=== PATIENT | male | born 1940 | race Caucasian/White ===

== ENCOUNTER → 2016-10-15 | Day surgery (SDC) | payer MEDICARE, BC ==
[~2016-10-15] MED LIST: ACET325T PO; ALPR-138; ALPR0.25 PO; AMLO5TAB96; BENI20TA25; BUPIVACAINE/EPINEPHRINE 0.25% 50 ML VIAL ONE; CHOL50006 PO; CLON1TAB PO; CLOP75TA PO; DEGA80IN SQ; LABE200T2; LABE300T; LACTATED RINGER'S 1000 ML INJ 1,000 ML ONE; LORT5TAB; LOSA100T PO; MECL12.574 PO; MIDAZOLAM HCL 2 MG/2 ML VIAL ONE; MIRA50TA PO; NEOMYCIN/POLYMYXIN/BACITRACIN OINT 15 GM TUBE ONE; PROPOFOL 500 MG/50 ML BTL IV ONE; SOMA350T; TAMS0.4C4 PO; VERA1TAB10 PO; VITA400C5 PO; VYTO10TA35; ZOCO40TA PO; ZOVI400T PO; ceFAZolin 2 GM PREMIX 50 ML ONE
--- NOTE | 2016-10-15 12:11 | TN ---
cc: PACO DE JESUS M.D. DATE OF SURGERY 10/15/2016 PREOPERATIVE DIAGNOSIS Basal cell and squamous cell carcinoma bilateral lower extremity (two on the left, one on the right). 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 PROCEDURE PERFORMED 1. Wide local excision basal cell and squamous cell carcinomas bilateral lower extremities. 2. Right lower extremity 2 x 4 cm. 3. Left medial lower extremity 3 x 6 cm. 4. Left lateral lower extremity 2 x 4 cm SURGEON Paco De Jesus MD ANESTHESIA TIVA with local COMPLICATIONS None INDICATIONS FOR PROCEDURE Mr. 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 He underwent biopsies and these were found to be basal cell and squamous cell carcinomas. Because of their location on his lower extremity and the fact that he had very tight skin, they sent him for surgical evaluation. The patient was seen and evaluated in the office. He was offered wide local excision of all three lesions. The risks and benefits were discussed with him and he was agreeable. DETAILS The patient was identified, brought to the operating room and placed supine on the operating table. After adequate IV sedation was achieved, the anterior lower extremities were prepped and draped in standard surgical fashion. All lesions had been marked in the preoperative holding area by myself and the patient confirmed with photographs from dermatology. First, attention was directed to the right lower extremity were the lesion was marked out. Using a 2 x 4 cm ellipse, we were able to achieve negative gross margins. Quarter percent Marcaine was injected around the proposed incision. An elliptical 2 x 4 cm Vision was used to excise the lesion in toto with subcutaneous fat. A short stitch was placed superiorly, a long stitch was placed lateral. It was then sent to pathology for analysis. The wound was then closed in two layers using 3-0 Vicryl for the subcutaneous tissue and a 4-0 nylon for the skin. Attention was now directed to the left lower extremity. On the medial side, the patient had a larger lesion. We therefore needed a 3 x 6 cm ellipse to achieve gross negative margins. Quarter percent Marcaine was injected and a 3 x 6 cm elliptical incision was then made. The specimen was excised in toto of subcutaneous fat. It was labeled a short stitch superiorly and a long stitch lateral. Next, skin flaps were mobilized medially and laterally in order to achieve primary closure. Primary closure was accomplished using a 3-0 Vicryl and a 3-0 nylon. Sterile dressings were applied. Finally attention was directed the left lateral lower extremity where a smaller lesion was identified. A 2 x 4 cm elliptical incision was proposed. Quarter percent Marcaine was injected around it. An elliptical incision was made 2 x 4 cm. The subcutaneous tissues were dissected with sharp dissection. The lesion was excised in toto and a short stitch was placed superior long, short stitch was placed lateral. The wound was then closed in two layers using a 3-0 Vicryl and a 3-0 nylon. Sterile dressings were applied. The patient was awakened, brought to recovery in stable condition. MD JACQUELINE Wu/MADHAV /11:49 AM /11:59 AM
== END | disposition home or self-care (01) ==
LOC: ESDC 09:36
PROVIDERS: ATTEND Surgery Trauma Surgery
DX: C44.729 Squamous cell carcinoma of skin of left lower limb, including hip (principal); C44.719 Basal cell carcinoma of skin of left lower limb, including hip; L90.5 Scar conditions and fibrosis of skin
CPT/HCPCS: 00400; 11406; 11604; 11606; 12034; 88305; J0690; J2250; J3010; J7120

== ENCOUNTER 2016-11-26 06:45 | Emergency (ER) | payer MEDICARE, BC ==
[~2016-11-26] VITALS: Ht 182.9 cm; Wt 111.0 kg
[~2016-11-26 06:45] MED LIST changes: -ACET325T PO; -ALPR0.25 PO; -BUPIVACAINE/EPINEPHRINE 0.25% 50 ML VIAL ONE; -CHOL50006 PO; -CLON1TAB PO; -CLOP75TA PO; -DEGA80IN SQ; -LACTATED RINGER'S 1000 ML INJ 1,000 ML ONE; -LOSA100T PO; -MECL12.574 PO; -MIDAZOLAM HCL 2 MG/2 ML VIAL ONE; -MIRA50TA PO; -NEOMYCIN/POLYMYXIN/BACITRACIN OINT 15 GM TUBE ONE; -PROPOFOL 500 MG/50 ML BTL IV ONE; -TAMS0.4C4 PO; -VERA1TAB10 PO; -VITA400C5 PO; -ZOCO40TA PO; -ZOVI400T PO; -ceFAZolin 2 GM PREMIX 50 ML ONE
[2016-11-26 06:56] VITALS: BP 114/68; PULSE 87; RESP 16; TEMP 98; O2SAT 97
--- NOTE | 2016-11-26 07:24 | PD ---
HPI Chief Complaint: Fall Time Seen by Provider: 07:01 Travel History International Travel<30 days: No Contact w/Intl Traveler<30days: No Traveled to known affect area: No History of Present Illness HPI 76yo M with PMH of prostate CA, CAD, vertigo presents to the ED with c/o laceration above left eyebrow s/p fall this morning. States he walked back from the bathroom and fell onto the floor. States he thinks he slip and fell because he waxed his wooden floors yesterday but is not sure. Denies any LOC and states he got right back up after falling. Denies any dizziness, chest pain , visual changes, sob, n/v, abdominal pain, focal weakness and numbness. Pt is on plavix. Does not remember last tetanus shot. Only complaint is pain where the laceration is. PFSH Past Medical History Hx Anticoagulant Therapy: Yes (PLAVIX) Anxiety: Yes High Cholesterol: Yes Diminished Hearing: No Hypertension: Yes Musculoskeletal: Yes (CHRONIC BACK PAIN ) Past Surgical History Neurologic Surgery: Yes (C 567 FUSION ) Social History Alcohol Use: Yes (BEER DAILY) Tobacco Use: No Substance Use: No Allergies-Medications (Allergen,Severity, Reaction): Coded Allergies: Contrast Media (Verified Allergy, Mild, 11/26/16) Reported Meds & Prescriptions Reported Meds & Active Scripts Active Acetaminophen 325 Mg Tab 325 Mg PO Q4-6H PRN Reported Alprazolam 0.25 Mg Tab 0.25 Mg PO Q4H PRN Meclizine (Meclizine HCl) 12.5 Mg Tab 12.5 Mg PO TID PRN Vitamin D (Cholecalciferol) 5,000 Unit Tab E-400 (Vitamin E) 400 Unit Cap Losartan (Losartan Potassium) 100 Mg Tab 100 Mg PO DAILY Clonazepam 1 Mg Tab 1 Mg PO BID Zocor (Simvastatin) 40 Mg Tab 40 Mg PO DAILY Zovirax (Acyclovir) 400 Mg Tab 400 Mg PO BID Clopidogrel (Clopidogrel Bisulfate) 75 Mg Tab 75 Mg PO DAILY Verapamil ER (Verapamil HCl) 180 Mg Tab 180 Mg PO DAILY Tamsulosin (Tamsulosin HCl) 0.4 Mg Cap 0.4 Mg PO HS Myrbetriq (Mirabegron) 50 Mg Tab 50 Mg PO DAILY Firmagon Inj (Degarelix Inj) 80 Mg Inj 80 Mg SQ Q28D Review of Systems Except as stated in HPI: all other systems reviewed are Neg Physical Exam Narrative GENERAL: 76yo M not in distress. SKIN: Warm and dry. HEAD: +2 cm laceration above left eyebrow. EYES: Pupils equal and round.EOMI. ENT: No septal hematoma. No hemotympanum. NECK: No midline cervical spine ttp. CARDIOVASCULAR: Regular rate and rhythm. No murmur appreciated. RESPIRATORY: No accessory muscle use. Clear to auscultation. Breath sounds equal bilaterally. GASTROINTESTINAL: Abdomen soft, non-tender, nondistended. No rebound tenderness or guarding. BACK: No midline ttp thoracic or lumbar spine. MUSCULOSKELETAL: No obvious deformities. No clubbing. No cyanosis. No edema. NEUROLOGICAL: Awake and alert. No obvious cranial nerve deficits. Motor grossly within normal limits. Normal speech. PSYCHIATRIC: Appropriate mood and affect; insight and judgment normal. Data Data Last Documented VS Vital Signs Date Time Temp Pulse Resp B/P Pulse Ox O2 Delivery O2 Flow Rate FiO2 11/26/16 09:00 85 18 101/67 96 Room Air 11/26/16 06:[address] Brain W/O Iv Contrast(Rout) (11/26/16 ) Complete Blood Count With Diff (11/26/16 07:18) Basic Metabolic Panel (Bmp) (11/26/16 07:18) Prothrombin Time / Inr (Pt) (11/26/16 07:18) Act Partial Throm Time (Ptt) (11/26/16 07:18) Tetanus/Diphtheria Tox Adult (Tetanus/Di (11/26/16 07:30) Electrocardiogram (11/26/16 ) Troponin I (11/26/16 07:18) Lidocai-Epi 1%-1:100,000 Inj (Xylocaine- (11/26/16 07:30) Acetaminophen (Tylenol) (11/26/16 09:00) Labs Laboratory Tests Test 11/26/16 07:35 White Blood Count 6.9 TH/MM3 Red Blood Count 4.28 MIL/MM3 Hemoglobin 13.5 GM/DL Hematocrit 39.4 % Mean Corpuscular Volume 92.2 FL Mean Corpuscular Hemoglobin 31.7 PG Mean Corpuscular Hemoglobin 34.4 % Concent Red Cell Distribution Width 12.9 % Platelet Count 210 TH/MM3 Mean Platelet Volume 7.7 FL Neutrophils (%) (Auto) 68.6 % Lymphocytes (%) (Auto) 22.1 % Monocytes (%) (Auto) 6.9 % Eosinophils (%) (Auto) 1.7 % Basophils (%) (Auto) 0.7 % Neutrophils # (Auto) 4.8 TH/MM3 Lymphocytes # (Auto) 1.5 TH/MM3 Monocytes # (Auto) 0.5 TH/MM3 Eosinophils # (Auto) 0.1 TH/MM3 Basophils # (Auto) 0.0 TH/MM3 CBC Comment DIFF FINAL Differential Comment Prothrombin Time 11.7 SEC Prothromb Time International 1.1 RATIO Ratio Activated Partial 38.0 SEC Thromboplast Time Sodium Level 143 MEQ/L Potassium Level 4.0 MEQ/L Chloride Level 107 MEQ/L Carbon Dioxide Level 24.5 MEQ/L Anion Gap 12 MEQ/L Blood Urea Nitrogen 13 MG/DL Creatinine 0.91 MG/DL Estimat Glomerular Filtration 81 ML/MIN Rate Random Glucose 138 MG/DL Calcium Level 8.5 MG/DL Troponin I LESS THAN 0.02 NG/ML MDM Medical Decision Making Medical Screen Exam Complete: Yes Emergency Medical Condition: Yes Interpretation(s) EKG: NSR 81bpm. Normal axis. Q wave III. No ST segment elevation or depression. QTc 422ms. Laboratory Tests Test 11/26/16 07:35 White Blood Count 6.9 TH/MM3 (4.0-11.0) Red Blood Count 4.28 MIL/MM3 (4.50-5.90) Hemoglobin 13.5 GM/DL (13.0-17.0) Hematocrit 39.4 % (39.0-51.0) Mean Corpuscular Volume 92.2 FL (80.0-100.0) Mean Corpuscular Hemoglobin 31.7 PG (27.0-34.0) Mean Corpuscular Hemoglobin 34.4 % Concent (32.0-36.0) Red Cell Distribution Width 12.9 % (11.6-17.2) Platelet Count 210 TH/MM3 (150-450) Mean Platelet Volume 7.7 FL (7.0-11.0) Neutrophils (%) (Auto) 68.6 % (16.0-70.0) Lymphocytes (%) (Auto) 22.1 % (9.0-44.0) Monocytes (%) (Auto) 6.9 % (0.0-8.0) Eosinophils (%) (Auto) 1.7 % (0.0-4.0) Basophils (%) (Auto) 0.7 % (0.0-2.0) Neutrophils # (Auto) 4.8 TH/MM3 (1.8-7.7) Lymphocytes # (Auto) 1.5 TH/MM3 (1.0-4.8) Monocytes # (Auto) 0.5 TH/MM3 (0-0.9) Eosinophils # (Auto) 0.1 TH/MM3 (0-0.4) Basophils # (Auto) 0.0 TH/MM3 (0-0.2) CBC Comment DIFF FINAL Differential Comment Prothrombin Time 11.7 SEC (9.8-11.6) Prothromb Time International 1.1 RATIO Ratio Activated Partial 38.0 SEC Thromboplast Time (24.3-30.1) Sodium Level 143 MEQ/L (136-145) Potassium Level 4.0 MEQ/L (3.5-5.1) Chloride Level 107 MEQ/L (98-107) Carbon Dioxide Level 24.5 MEQ/L (21.0-32.0) Anion Gap 12 MEQ/L (5-15) Blood Urea Nitrogen 13 MG/DL (7-18) Creatinine 0.91 MG/DL (0.60-1.30) Estimat Glomerular Filtration 81 ML/MIN (>89) Rate Random Glucose 138 MG/DL (74-106) Calcium Level 8.5 MG/DL (8.5-10.1) Troponin I LESS THAN 0.02 NG/ML (0.02-0.05) Last Impressions Head CT 11/26/16 0000 Signed Impressions: Service Date/Time: Saturday, November 26, 2016 07:51 - CONCLUSION: No acute intracranial injury Josue Wasseramn MD Differential Diagnosis ICH vs. arrhythmia vs. electrolyte abnormality Narrative Course 76yo M presents to laceration above left forehead s/p what sounds like mechanical fall. VS wnl. Labs reviewed, no leukocytosis. H/H stable. Troponin negative. Glucose 138. Laceration repaired. Pt given tetanus. CT brain showed no acute intracranial injury. Procedures Procedure Narrative LACERATION LOCATION: Above left eyebrow LENGTH: 2 cm NUMBER OF STITCHES/RAYMUNDO: 4 REPAIR: The area of the laceration was prepped with Betadine and sterilely draped. The laceration was infiltrated with 1% lidocaine with epinephrine. The wound was copiously irrigated and explored without evidence of foreign body, tendon injury or neurovascular injury. The wound was closed using 6-0 nylon. This was a single layer repair. A sterile dressing was applied. The patient was advised to keep the dressing clean and dry. Patient tolerated the procedure well. Diagnosis Primary Impression: Head trauma Qualified Code: S09.90XA - Head trauma, initial encounter Patient Instructions: General Instructions Departure Forms: Tests/Procedures Additional Instructions: Please follow up with your PMD or return to the ED in 5 days for suture removal. Please return to the ED immediately if you have worsening headache, vomiting, weakness or numbness or any signs of infection. Med/Other Pt SpecificInfo: Prescription(s) given Scripts Acetaminophen 325 Mg Orb085 Mg PO Q4-6H PRN (PAIN SCALE 1 TO 4) #20 TAB Ref 0 Prov:Corrine Stanley DO 11/26/16 Disposition: 01 DISCHARGE HOME Condition: Stable Corrine Stanley DO Nov 26, 2016 07:24
[2016-11-26] MEDS ORDERED: LIDOCAINE 1%/EPINEPHrine 1:100,000 SOLN 20 ML VIAL INFIL ONE (07:30)
[2016-11-26] MEDS ORDERED: TETANUS/DIPHTHERIA TOXOID ADULT 0.5 ML VIAL IM ONE (07:30)
[2016-11-26 07:48] LABS: AUTOMATED NEUTROPHIL # 4.8 TH/MM3 (1.8-7.7); BASOPHIL % 0.7 % (0.0-2.0); EOSINOPHIL # 0.1 TH/MM3 (0-0.4); EOSINOPHIL % 1.7 % (0.0-4.0); HEMATOCRIT 39.4 % (39.0-51.0); HEMO FLAGS DIFF FINAL; LYMPH % 22.1 % (9.0-44.0); LYMPHOCYTE # 1.5 TH/MM3 (1.0-4.8); MEAN CELL VOLUME 92.2 FL (80.0-100.0); MEAN CORPUSCULAR HEMOGLOBIN 31.7 PG (27.0-34.0); MEAN CORPUSCULAR HGB CONC 34.4 % (32.0-36.0); MONO % 6.9 % (0.0-8.0); NEUT % 68.6 % (16.0-70.0); PLATELET COUNT 210 TH/MM3 (150-450); RED BLOOD COUNT 4.28 MIL/MM3 (4.50-5.90); RED CELL DISTRIBUTION WIDTH 12.9 % (11.6-17.2); WHITE BLOOD COUNT 6.9 TH/MM3 (4.0-11.0)
[2016-11-26] MEDS ORDERED: ZOVI400T PO (07:54)
[2016-11-26] MEDS ORDERED: DEGA80IN SQ (07:54)
[2016-11-26] MEDS ORDERED: LOSA100T PO (07:54)
[2016-11-26] MEDS ORDERED: TAMS0.4C4 PO (07:54)
[2016-11-26] MEDS ORDERED: MECL12.574 PO (07:54)
[2016-11-26] MEDS ORDERED: CHOL50006 PO (07:54)
[2016-11-26] MEDS ORDERED: ZOCO40TA PO (07:54)
[2016-11-26] MEDS ORDERED: CLOP75TA PO (07:54)
[2016-11-26] MEDS ORDERED: MIRA50TA PO (07:54)
[2016-11-26] MEDS ORDERED: CLON1TAB PO (07:54)
[2016-11-26] MEDS ORDERED: VITA400C5 PO (07:54)
[2016-11-26] MEDS ORDERED: VERA1TAB10 PO (07:54)
[2016-11-26] MEDS ORDERED: ALPR0.25 PO (07:54)
--- NOTE | 2016-11-26 08:03 | RADHPO ---
EXAM DATE/TIME: 11/26/2016 07:51 [facility] COMPARISON: No previous studies available for comparison. INDICATIONS : Fell this morning. Left frontal laceration. RADIATION DOSE: 63.00 CTDIvol (mGy) MEDICAL HISTORY : Hypertension. Anticoagulant therapy. SURGICAL HISTORY : Fusion, cervical. ENCOUNTER: Initial ACUITY: 1 day PAIN SCALE: 2/10 LOCATION: Left frontal TECHNIQUE: Multiple contiguous axial images were obtained of the head. Using automated exposure control and adj ustment of the mA and/or kV according to patient size, radiation dose was kept as low as reasonably a chievable to obtain optimal diagnostic quality images. FINDINGS: There is a tiny left basal ganglia lacunar infarct. Basal ganglia calcifications are present. There i s no evidence of intracranial mass or hemorrhage. There is nothing to suggest acute infarction. There is bandage material over the left temporal region. No evidence of underlying skull fracture. The ext racranial structures are benign. CONCLUSION: No acute intracranial injury Josue Wasserman MD on November 26, 2016 at 8:00 Board Certified Radiologist. This report was verified electronically.
[2016-11-26 08:08] LABS: CHLORIDE 107 MEQ/L (98-107); SODIUM (NA) 143 MEQ/L (136-145)
[2016-11-26 08:11] LABS: ANION GAP 12 MEQ/L (5-15); BICARBONATE 24.5 MEQ/L (21.0-32.0); BLOOD UREA NITROGEN 13 MG/DL (7-18)
[2016-11-26 08:12] LABS: INTERNATIONAL NORMALIZED RATIO 1.1 RATIO; PROTHROMBIN TIME - PATIENT 11.7 SEC (9.8-11.6)
[2016-11-26 08:15] LABS: GLOMERULAR FILTRATION RATE 81 ML/MIN (>89)
[2016-11-26] MEDS ORDERED: ACET325T PO (08:54)
[2016-11-26 09:00] VITALS: BP 101/67; PULSE 85; RESP 18; O2SAT 96
[2016-11-26] MEDS ORDERED: ACETAMINOPHEN 500 MG CPLT PO ONE (09:00)
--- NOTE | 2016-11-26 21:52 | EKG ---
Date Performed: 11/26/2016 Time Performed: 07:32:36 PTAGE: 76 years EKG: Sinus rhythm PACs Inferior T wave changes are nonspecific Borderline ECG PREVIOUS TRACING : 08/13/2007 11.09 Compared to prior tracing no significant change DOCTOR: Balbir Joseph Interpretating Date/Time 11/26/2016 21:51:05
== END 2016-11-26 09:44 | disposition home or self-care (01) ==
LOC: PHED 06:45
DX: S01.81XA Laceration without foreign body of other part of head, initial encounter (principal); S09.90XA Unspecified injury of head, initial encounter; Z79.01 Long term (current) use of anticoagulants; F41.9 Anxiety disorder, unspecified; E78.00 Pure hypercholesterolemia, unspecified; F10.20 Alcohol dependence, uncomplicated; W01.0XXA Fall on same level from slipping, tripping and stumbling without subsequent striking against object, initial encounter
CPT/HCPCS: 12011; 70450; 80048; 84484; 85025; 85610; 85730; 90471; 90714; 93005

== ENCOUNTER 2016-11-27 15:26 | Emergency (ER) | payer MEDICARE, BC ==
[~2016-11-27] VITALS: Ht 182.9 cm; Wt 111.0 kg
[2016-11-27] VITALS (7 sets, daily range): BP systolic 110–136; BP diastolic 68–83; PULSE 72–79; RESP 16; TEMP 98.4; O2SAT 96–98
[~2016-11-27 15:26] MED LIST changes: +ACET325T PO; +ALPR0.25 PO; +CHOL50006 PO; +CLON1TAB PO; +CLOP75TA PO; +DEGA80IN SQ; +LOSA100T PO; +MECL12.574 PO; +MIRA50TA PO; +TAMS0.4C4 PO; +VERA1TAB10 PO; +VITA400C5 PO; +ZOCO40TA PO; +ZOVI400T PO
[2016-11-27] MEDS ORDERED: SODIUM CHLORIDE 0.9% FLUSH 5 ML FLUSH IVF PRN (16:00)
[2016-11-27 16:08] LABS: AUTOMATED NEUTROPHIL # 4.8 TH/MM3 (1.8-7.7); BASOPHIL % 0.5 % (0.0-2.0); EOSINOPHIL # 0.1 TH/MM3 (0-0.4); EOSINOPHIL % 1.2 % (0.0-4.0); HEMATOCRIT 33.7 % (39.0-51.0); HEMO FLAGS DIFF FINAL; LYMPH % 24.3 % (9.0-44.0); LYMPHOCYTE # 1.7 TH/MM3 (1.0-4.8); MEAN CELL VOLUME 92.2 FL (80.0-100.0); MEAN CORPUSCULAR HEMOGLOBIN 30.9 PG (27.0-34.0); MEAN CORPUSCULAR HGB CONC 33.5 % (32.0-36.0); MONO % 8.2 % (0.0-8.0); NEUT % 65.8 % (16.0-70.0); PLATELET COUNT 180 TH/MM3 (150-450); RED BLOOD COUNT 3.65 MIL/MM3 (4.50-5.90); RED CELL DISTRIBUTION WIDTH 12.9 % (11.6-17.2); WHITE BLOOD COUNT 7.2 TH/MM3 (4.0-11.0)
[2016-11-27 16:16] LABS: CHLORIDE 105 MEQ/L (98-107); POTASSIUM 3.7 MEQ/L (3.5-5.1); SODIUM (NA) 139 MEQ/L (136-145)
[2016-11-27 16:20] LABS: ANION GAP 11 MEQ/L (5-15); APTT (PATIENT) 39.1 SEC (24.3-30.1); BICARBONATE 23.2 MEQ/L (21.0-32.0); BLOOD UREA NITROGEN 20 MG/DL (7-18); PROTHROMBIN TIME - PATIENT 11.2 SEC (9.8-11.6)
[2016-11-27 16:23] LABS: ALT (GPT) 27 U/L (12-78); AST (GOT) 16 U/L (15-37); GLOMERULAR FILTRATION RATE 65 ML/MIN (>89)
[2016-11-27 16:24] LABS: TOTAL BILIRUBIN ADULT 0.7 MG/DL (0.2-1.0)
[2016-11-27 16:26] LABS: ALKALINE PHOSPHATASE 54 U/L (45-117)
--- NOTE | 2016-11-27 17:04 | RADHPO ---
EXAM DATE/TIME: 11/27/2016 16:20 [facility] COMPARISON: CT BRAIN W/O CONTRAST, November 26, 2016, 7:51. INDICATIONS : Left facial droop. Numbness in hands. RADIATION DOSE: 59.07 CTDIvol (mGy) MEDICAL HISTORY : Hypertension. SURGICAL HISTORY : Fusion, cervical. ENCOUNTER: Subsequent ACUITY: 2 days PAIN SCALE: 0/10 LOCATION: cranial TECHNIQUE: Multiple contiguous axial images were obtained of the head. Using automated exposure control and adj ustment of the mA and/or kV according to patient size, radiation dose was kept as low as reasonably a chievable to obtain optimal diagnostic quality images. FINDINGS: CEREBRUM: The ventricles are normal for age. No evidence of midline shift, mass lesion, hemorrhage or acute in farction. Physiologic calcification of basal ganglia. No extra-axial fluid collections are seen. POSTERIOR FOSSA: The cerebellum and brainstem are intact. The 4th ventricle is midline. The cerebellopontine angle i s unremarkable. EXTRACRANIAL: The visualized portion of the orbits is intact. SKULL: The calvaria is intact. No evidence of skull fracture. CONCLUSION: No acute findings. The overall appearance of the brain is unchanged from prior examination one day a go. Dominick Ulrich MD on November 27, 2016 at 16:44 Board Certified Radiologist. This report was verified electronically.
--- NOTE | 2016-11-27 19:32 | RADHPO ---
EXAM DATE/TIME: 11/27/2016 19:15 [facility] COMPARISON: CT BRAIN W/O CONTRAST, November 27, 2016, 16:20. INDICATIONS : Left sided weakness. MEDICAL HISTORY : Hypertension. Carcinoma, prostate. SURGICAL HISTORY : Fusion, cervical. Hand surgery. Prostate bx. ENCOUNTER: Initial ACUITY: 2 day PAIN SCORE: 0/10 LOCATION: head TECHNIQUE: Multiplanar, multisequence MRI of the brain was performed without contrast. FINDINGS: CEREBRUM: The ventricles are normal for age. No evidence of midline shift, mass lesion, hemorrhage or acute in farction. No extraaxial fluid collections are seen. The pituitary gland and suprasellar cistern are normal in configuration. WHITE MATTER: Minimal periventricular and a few punctate areas of deep white matter microvascular ischemic demyelin ization age-appropriate POSTERIOR FOSSA: The cerebellum and brainstem are intact. The 4th ventricle is midline. The cerebellopontine angle is unremarkable. The cerebellar tonsils are normal in position. DIFFUSION IMAGING: No focal areas of restricted diffusion are seen. No evidence of acute infarction. EXTRACRANIAL: The visualized portions of the orbits and paranasal sinuses are unremarkable. CONCLUSION: Normal examination for a patient of this age. Earl Parker MD on November 27, 2016 at 19:29 Board Certified Radiologist. This report was verified electronically.
--- NOTE | 2016-11-27 19:33 | PD ---
HPI Chief Complaint: Neuro Symptoms/ Deficits Time Seen by Provider: 15:52 Travel History International Travel<30 days: No Contact w/Intl Traveler<30days: No Traveled to known affect area: No History of Present Illness HPI 76-year-old man who presents to the emergency department for evaluation of left facial weakness. Patient fell yesterday. He is unclear why. He thinks he may have tripped. A little bit weak. This morning when he woke up his girlfriend noticed a little bit of asymmetry of the left side. He had cut the left brow receive stitches yesterday. He otherwise had been feeling generally well. He is getting shots for his prostate cancer and went to Dr. Ren's office. They' re the nurse noticed the facial asymmetry and recommended that he come to the emergency department and be evaluated. He does feel some weakness in his hands as well. He also has a little pain in his hips. History Past Medical History Narrative Medical Vertigo Prostate CA Hypertension hyperlipidemia Neuropathy Social History Alcohol Use: Yes (BEER DAILY) Tobacco Use: No Allergies-Medications (Allergen,Severity, Reaction): Coded Allergies: Contrast Media (Verified Allergy, Mild, 11/27/16) Reported Meds & Prescriptions Reported Meds & Active Scripts Active Acetaminophen 325 Mg Tab 325 Mg PO Q4-6H PRN Reported Alprazolam 0.25 Mg Tab 0.25 Mg PO Q4H PRN Meclizine (Meclizine HCl) 12.5 Mg Tab 12.5 Mg PO TID PRN Vitamin D (Cholecalciferol) 5,000 Unit Tab 1 Tab PO DAILY E-400 (Vitamin E) 400 Unit Cap 1 Cap PO DAILY Losartan (Losartan Potassium) 100 Mg Tab 100 Mg PO DAILY Clonazepam 1 Mg Tab 1 Mg PO BID Zocor (Simvastatin) 40 Mg Tab 40 Mg PO HS Zovirax (Acyclovir) 400 Mg Tab 400 Mg PO BID Clopidogrel (Clopidogrel Bisulfate) 75 Mg Tab 75 Mg PO DAILY Verapamil ER (Verapamil HCl) 180 Mg Tab 180 Mg PO DAILY Tamsulosin (Tamsulosin HCl) 0.4 Mg Cap 0.4 Mg PO HS Myrbetriq (Mirabegron) 50 Mg Tab 50 Mg PO DAILY Firmagon Inj (Degarelix Inj) 80 Mg Inj 80 Mg SQ Q28D Review of Systems Except as stated in HPI: all other systems reviewed are Neg Physical Exam Narrative GENERAL: Well-appearing 76-year-old man, no acute distress. SKIN: Warm and dry. HEAD: Atraumatic. Normocephalic. EYES: Pupils equal and round. No scleral icterus. No injection or drainage. ENT: No nasal bleeding or discharge. Mucous membranes pink and moist. Laceration over the left brow is been repaired. Little bit of fullness to the left brow, little bit of ptosis on that side, and a little bit of flattening of the left nasolabial fold. NECK: Trachea midline. No JVD. CARDIOVASCULAR: Regular rate and rhythm. No murmur appreciated. RESPIRATORY: No accessory muscle use. Clear to auscultation. Breath sounds equal bilaterally. GASTROINTESTINAL: Abdomen soft, non-tender, nondistended. Hepatic and splenic margins not palpable. MUSCULOSKELETAL: No obvious deformities. No clubbing. No cyanosis. No edema. NEUROLOGICAL: Awake and alert. Flattening of the left nasolabial fold. Some decreased sensation in the upper V 1, but otherwise some facial sensation is symmetric. I don't appreciate any obvious strength asymmetry. There is no drift. No lower 70 drip. On finger to nose he seems a little bit dysmetric on the left upper extremity. PSYCHIATRIC: Appropriate mood and affect; insight and judgment normal. Data Data Last Documented VS Vital Signs Date Time Temp Pulse Resp B/P Pulse Ox O2 Delivery O2 Flow Rate FiO2 11/27/16 19:27 72 16 119/83 97 Room Air 11/27/16 15:35 98.4 Orders Complete Blood Count With Diff (11/27/16 15:52) Comprehensive Metabolic Panel (11/27/16 15:52) Prothrombin Time / Inr (Pt) (11/27/16 15:52) Act Partial Throm Time (Ptt) (11/27/16 15:52) Ct Brain W/O Iv Contrast(Rout) (11/27/16 15:52) Ecg Monitoring (11/27/16 15:52) Iv Access Insert/Monitor (11/27/16 15:52) Oximetry (11/27/16 15:52) Sodium Chloride 0.9% Flush (Ns Flush) (11/27/16 16:00) Mri Brain W/O Contrast (11/27/16 ) Labs Laboratory Tests Test 11/27/16 15:40 White Blood Count 7.2 TH/MM3 Red Blood Count 3.65 MIL/MM3 Hemoglobin 11.3 GM/DL Hematocrit 33.7 % Mean Corpuscular Volume 92.2 FL Mean Corpuscular Hemoglobin 30.9 PG Mean Corpuscular Hemoglobin 33.5 % Concent Red Cell Distribution Width 12.9 % Platelet Count 180 TH/MM3 Mean Platelet Volume 8.1 FL Neutrophils (%) (Auto) 65.8 % Lymphocytes (%) (Auto) 24.3 % Monocytes (%) (Auto) 8.2 % Eosinophils (%) (Auto) 1.2 % Basophils (%) (Auto) 0.5 % Neutrophils # (Auto) 4.8 TH/MM3 Lymphocytes # (Auto) 1.7 TH/MM3 Monocytes # (Auto) 0.6 TH/MM3 Eosinophils # (Auto) 0.1 TH/MM3 Basophils # (Auto) 0.0 TH/MM3 CBC Comment DIFF FINAL Differential Comment Prothrombin Time 11.2 SEC Prothromb Time International 1.0 RATIO Ratio Activated Partial 39.1 SEC Thromboplast Time Sodium Level 139 MEQ/L Potassium Level 3.7 MEQ/L Chloride Level 105 MEQ/L Carbon Dioxide Level 23.2 MEQ/L Anion Gap 11 MEQ/L Blood Urea Nitrogen 20 MG/DL Creatinine 1.10 MG/DL Estimat Glomerular Filtration 65 ML/MIN Rate Random Glucose 116 MG/DL Calcium Level 8.3 MG/DL Total Bilirubin 0.7 MG/DL Aspartate Amino Transf 16 U/L (AST/SGOT) Alanine Aminotransferase 27 U/L (ALT/SGPT) Alkaline Phosphatase 54 U/L Total Protein 6.6 GM/DL Albumin 3.6 GM/DL [facility] Medical Decision Making Medical Screen Exam Complete: Yes Emergency Medical Condition: Yes Interpretation(s) LABS: CBC unremarkable CMP unremarkable UA unremarkable CT head: Negative. Differential Diagnosis Head bleed, adverse effect of contusion, facial asymmetry may be just from his laceration, stroke, other Narrative Course Medical decision making 76-year-old man with some facial asymmetry after a fall and a laceration above the brow on that side. This may be just some local soft tissue swelling creeping the appearance of a facial droop, may represent bleed. Patient was taken for head stat head CT which was negative. We'll get MRI to confirm no CVA , likely discharge. FINAL: MRI pending. Patient was signed out to the oncoming provider 7 PM to follow-up results of MRI, discharge if negative. Suleiman Luong MD Nov 27, 2016 19:33
--- NOTE | 2016-11-27 19:56 | PD ---
Physical Exam Time Seen by Provider: 19:[address] Luong left this patient with me to check the results of the MRI. The patient would be discharge if the MRA is normal and admitted if there are findings of a recent CVA. Data Data Last Documented VS Vital Signs Date Time Temp Pulse Resp B/P Pulse Ox O2 Delivery O2 Flow Rate FiO2 11/27/16 19:27 72 16 119/83 97 Room Air 11/27/16 15:35 98.4 Orders Complete Blood Count With Diff (11/27/16 15:52) Comprehensive Metabolic Panel (11/27/16 15:52) Prothrombin Time / Inr (Pt) (11/27/16 15:52) Act Partial Throm Time (Ptt) (11/27/16 15:52) Ct Brain W/O Iv Contrast(Rout) (11/27/16 15:52) Ecg Monitoring (11/27/16 15:52) Iv Access Insert/Monitor (11/27/16 15:52) Oximetry (11/27/16 15:52) Sodium Chloride 0.9% Flush (Ns Flush) (11/27/16 16:00) Mri Brain W/O Contrast (11/27/16 ) Labs Laboratory Tests Test 11/27/16 15:40 White Blood Count 7.2 TH/MM3 Red Blood Count 3.65 MIL/MM3 Hemoglobin 11.3 GM/DL Hematocrit 33.7 % Mean Corpuscular Volume 92.2 FL Mean Corpuscular Hemoglobin 30.9 PG Mean Corpuscular Hemoglobin 33.5 % Concent Red Cell Distribution Width 12.9 % Platelet Count 180 TH/MM3 Mean Platelet Volume 8.1 FL Neutrophils (%) (Auto) 65.8 % Lymphocytes (%) (Auto) 24.3 % Monocytes (%) (Auto) 8.2 % Eosinophils (%) (Auto) 1.2 % Basophils (%) (Auto) 0.5 % Neutrophils # (Auto) 4.8 TH/MM3 Lymphocytes # (Auto) 1.7 TH/MM3 Monocytes # (Auto) 0.6 TH/MM3 Eosinophils # (Auto) 0.1 TH/MM3 Basophils # (Auto) 0.0 TH/MM3 CBC Comment DIFF FINAL Differential Comment Prothrombin Time 11.2 SEC Prothromb Time International 1.0 RATIO Ratio Activated Partial 39.1 SEC Thromboplast Time Sodium Level 139 MEQ/L Potassium Level 3.7 MEQ/L Chloride Level 105 MEQ/L Carbon Dioxide Level 23.2 MEQ/L Anion Gap 11 MEQ/L Blood Urea Nitrogen 20 MG/DL Creatinine 1.10 MG/DL Estimat Glomerular Filtration 65 ML/MIN Rate Random Glucose 116 MG/DL Calcium Level 8.3 MG/DL Total Bilirubin 0.7 MG/DL Aspartate Amino Transf 16 U/L (AST/SGOT) Alanine Aminotransferase 27 U/L (ALT/SGPT) Alkaline Phosphatase 54 U/L Total Protein 6.6 GM/DL Albumin 3.6 GM/DL [facility] Medical Record Reviewed: Yes Supervised Visit with JAQUELINE: Yes Interpretation(s) The MRI is normal for a patient of this age. Differential Diagnosis Ischemic CVA, intracranial bleed, facial swelling from laceration Narrative Course The patient likely has facial asymmetry from the laceration/contusion of the face. There is no evidence for a CVA. Diagnosis Primary Impression: Facial laceration Additional Impression: Facial swelling Additional Instruction: Facial laceration Med/Other Pt SpecificInfo: No Change to Meds Disposition: 01 DISCHARGE HOME Condition: Stable Jarek Mojica MD Nov 27, 2016 19:55
== END 2016-11-27 20:39 | disposition home or self-care (01) ==
LOC: PHEFT 15:26
DX: S01.81XD Laceration without foreign body of other part of head, subsequent encounter (principal); S00.83XD Contusion of other part of head, subsequent encounter; C61 Malignant neoplasm of prostate; R42 Dizziness and giddiness; I10 Essential (primary) hypertension; E78.5 Hyperlipidemia, unspecified; W19.XXXD Unspecified fall, subsequent encounter
CPT/HCPCS: 70450; 70551; 80053; 85025; 85610; 85730

== ENCOUNTER → 2017-04-17 | Day surgery (SDC) | payer MEDICARE, BC ==
[~2017-04-17] VITALS: Ht 182.9 cm; Wt 107.9 kg
[~2017-04-17] MED LIST changes: +*RESP: ALBUTEROL 2.5 MG/3 ML NEB (PRN) PERIprocedural Use ONLY NEB ONE; +ACETAMINOPHEN/HYDROcodone 325 MG/7.5 MG TAB PO PRN; -ALPR-138; +ALPR.25 PO; -ALPR0.25 PO; -AMLO5TAB96; -BENI20TA25; +BUPIVACAINE HCL PF 0.5% 30 ML VIAL NERV BLOCK ONE; +CHLORHEXIDINE GLUCONATE 2 % 1 PACK (2 CLOTHS) TOPICAL PRN; -CHOL50006 PO; +DEXAMETHASONE SOD PHOS 4 MG/ML VIAL ONE; +EPINEPHrine HCL (1:1000) 30 MG/30 ML VIAL ONE; +FAMOTIDINE 20 MG/2 ML VIAL ONE; +INSULIN HUMAN REGULAR 1,000 UNITS/10 ML VIAL SQ PRN; +KETOROLAC TROMETHAMINE 30 MG/ML (IVP) VIAL IVP ONE; -LABE200T2; -LABE300T; +LACTATED RINGER'S 1000 ML INJ 1,000 ML IV ONE; +LACTATED RINGER'S 1000 ML IV PRN; -LORT5TAB; -MECL12.574 PO; +METOPROLOL TARTRATE 25 MG TAB PO PRN; +MIDAZOLAM HCL 2 MG/2 ML VIAL ONE; -MIRA50TA PO; +MORPHINE SULFATE 8 MG/ML INJ IV PUSH PRN; +NEOSTIGMINE 3 MG/3 ML SYR IV ONE; +ONDANSETRON HCL 4 MG/2 ML VIAL IV PRN; +ONDANSETRON HCL 4 MG/2 ML VIAL IV PUSH ONE; +POVIDONE IODINE 5% (ANTISEPSIS KIT) 4 APPLICATIONS EACH NARE PRN; +PROPOFOL 200 MG/20 ML AMP IV ONE; +SODIUM CHLORID 0.9% 500 ML IV PRN; +SODIUM CHLORIDE 0.9% FLUSH 10 ML FLUSH IV FLUSH PRN; +SODIUM CHLORIDE 0.9% FLUSH 10 ML FLUSH IV FLUSH SCH; -SOMA350T; +TRAZ50TA12 PO; -VITA400C5 PO; -VYTO10TA35; +ceFAZolin 1,000 MG/NS 100 ML IV SCH; +ePHEDrine/NS 25 MG/5 ML SYR IV ONE; +fentaNYL CITRATE 250 MCG/5 ML AMP ONE
[2017-04-17 11:49] VITALS: BP 119/69; PULSE 79; RESP 18; TEMP 98.4; O2SAT 96
[2017-04-17 13:33] LABS: BICARBONATE 22.7 MEQ/L (21.0-32.0); POTASSIUM 3.8 MEQ/L (3.5-5.1)
[2017-04-17 16:05] VITALS: BP 119/70; PULSE 73; RESP 18; TEMP 97.6; O2SAT 95
--- NOTE | 2017-04-17 22:45 | MP ---
cc: Alexander GHOTRA. 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 POSTOPERATIVE DIAGNOSIS Partial articular surface tear supraspinatus, minor biceps tendonitis, glenoid labrum tears, acromioclavicular arthritis, acromial arch impingement, left shoulder. OPERATION PERFORMED Arthroscopic extensive debridement including glenoid labrum and rotator cuff and undersurface acromioclavicular joint with subacromial decompression including acromioplasty. SURGEON Dora Ghotra MD ANESTHESIA General endotracheal and interscalene block regional. FINDINGS 1. The humeral head had minor irregularity in the mid anterior portion but otherwise appeared to be relatively normal. 2. The glenoid surface had no significant pathology with no instability pattern. 3. The glenoid labrum had degeneration in the entire superior aspect both anterior, superior. This was quite degenerated. There was no free edge tear. The root of the biceps was intact. The biceps tendon itself had initially the appearance of a split but ultimately an instrument could not be used to access this. There was a small area of scuff just near the hiatus. 4. Capsular structures viewed from within the joint appeared to be normal. The rotator cuff had a partial articular surface tear of the supraspinatus with the tissues appearing to be relatively stable. 5. In the subacromial space there was a prominence of the anterior acromion. The undersurface of the acromioclavicular joint was also quite prominent and pressing on the rotator cuff. The rotator cuff itself had a smooth surface with no erosions or irregularities. There was no defect. The cuff appeared to be intact from the bursal surface. PROCEDURE The patient was brought to the operating room and an interscalene block regional anesthetic was administered followed by general endotracheal anesthesia. He was placed in a lateral position on a Biomet lateral positioner with the left shoulder up and an axillary roll under the right shoulder. The left shoulder and arm were then prepped with alcohol, Hibiclens and Chloraprep and draped in the usual manner with the shoulder draped free and suspended from a shoulder alvarez. An appropriate time-out procedure was carried out. A needle was introduced into the shoulder joint itself from posteriorly to delineate proper instrument placement. The shoulder joint was distended with lactated Ringer's solution. A stab wound was made. Scope cannula was then inserted in place intra-articular. The shoulder was distended with lactated Ringer's solution with epinephrine. The interior of the shoulder was inspected. The scope was then advanced to the anterior capsule above the middle glenohumeral ligament. An obturator was then used to penetrate the capsule to the subcutaneous area where an anterior incision was made. An instrument cannula was brought over the tip of the scope into the joint itself. The 4.0 mm full radius resector was then used for debridement of the glenoid labrum. After smooth surface was achieved the biceps was carefully checked and the small areas of irregularity debrided. It was felt that a biceps tenodesis would not be necessary. The supraspinatus partial articular surface tear was then debrided coming back to a smooth surface. This appeared to be of adequate girth. The interior of the shoulder was then irrigated well. The instruments were removed. The scope cannula was then advanced into the subacromial space from posteriorly. A needle was introduced from lateral to delineate proper instrument placement. A lateral incision was then made. The switching stick was used after placement of the instrument cannula laterally. The scope was placed laterally with the instrument placed posteriorly. The shaver was then used from posterior to debride the undersurface of the acromion. The acromioclavicular joint was debrided, removing osteophytes but not doing a complete resection of the distal clavicle. An acromioplasty was then carried out from posteriorly using a cutting block method. Adequate space for the rotator cuff was achieved. The rotator cuff was then carefully inspected and found to have smooth surfaces. There was no need for a repair of the rotator cuff based upon the findings at this time. Hemostasis was then achieved with the ArthroCare electrocautery. The shoulder was then irrigated well. The block was adequate, therefore further local anesthetic was unnecessary. The instruments were then serially removed after evacuating the fluid from the shoulder. Wounds were closed with single interrupted subcuticular closure of 4-0 Monocryl. Wounds were dressed with Steri-Strips followed by dry dressing, sterile ABD and Medipore compression shoulder dressing. The arm was placed into a sling. The patient was transferred from the operating room to the recovery room in satisfactory condition having tolerated the procedure well. Counts were correct. Specimens none. Estimated blood loss was less than 5 ml. MD JAKY Wong/JERE /3:22 PM /10:34 PM
== END | disposition home or self-care (01) ==
LOC: HSDC 10:51
PROVIDERS: ATTEND Orthopaedic Surgery
DX: M75.112 Incomplete rotator cuff tear or rupture of left shoulder, not specified as traumatic (principal); M75.22 Bicipital tendinitis, left shoulder; M25.712 Osteophyte, left shoulder; M19.012 Primary osteoarthritis, left shoulder; M65.812 Other synovitis and tenosynovitis, left shoulder; I10 Essential (primary) hypertension; E11.9 Type 2 diabetes mellitus without complications; E78.5 Hyperlipidemia, unspecified; G62.9 Polyneuropathy, unspecified
CPT/HCPCS: 01630; 29823; 29826; 80048; 94664; J0171; J1100; J1885; J2250; J2405; J2710; J3010; J7120; J7613

== ENCOUNTER 2017-10-06 15:30 | Emergency (ER) | payer MEDICARE, BC ==
[~2017-10-06] VITALS: Ht 182.9 cm; Wt 112.0 kg
[~2017-10-06 15:30] MED LIST changes: -*RESP: ALBUTEROL 2.5 MG/3 ML NEB (PRN) PERIprocedural Use ONLY NEB ONE; -ACET325T PO; -ACETAMINOPHEN/HYDROcodone 325 MG/7.5 MG TAB PO PRN; -BUPIVACAINE HCL PF 0.5% 30 ML VIAL NERV BLOCK ONE; -CHLORHEXIDINE GLUCONATE 2 % 1 PACK (2 CLOTHS) TOPICAL PRN; -DEXAMETHASONE SOD PHOS 4 MG/ML VIAL ONE; -EPINEPHrine HCL (1:1000) 30 MG/30 ML VIAL ONE; -FAMOTIDINE 20 MG/2 ML VIAL ONE; -INSULIN HUMAN REGULAR 1,000 UNITS/10 ML VIAL SQ PRN; -KETOROLAC TROMETHAMINE 30 MG/ML (IVP) VIAL IVP ONE; -LACTATED RINGER'S 1000 ML INJ 1,000 ML IV ONE; -LACTATED RINGER'S 1000 ML IV PRN; -METOPROLOL TARTRATE 25 MG TAB PO PRN; -MIDAZOLAM HCL 2 MG/2 ML VIAL ONE; -MORPHINE SULFATE 8 MG/ML INJ IV PUSH PRN; -NEOSTIGMINE 3 MG/3 ML SYR IV ONE; -ONDANSETRON HCL 4 MG/2 ML VIAL IV PRN; -ONDANSETRON HCL 4 MG/2 ML VIAL IV PUSH ONE; -POVIDONE IODINE 5% (ANTISEPSIS KIT) 4 APPLICATIONS EACH NARE PRN; -PROPOFOL 200 MG/20 ML AMP IV ONE; -SODIUM CHLORID 0.9% 500 ML IV PRN; -SODIUM CHLORIDE 0.9% FLUSH 10 ML FLUSH IV FLUSH PRN; -SODIUM CHLORIDE 0.9% FLUSH 10 ML FLUSH IV FLUSH SCH; -ceFAZolin 1,000 MG/NS 100 ML IV SCH; -ePHEDrine/NS 25 MG/5 ML SYR IV ONE; -fentaNYL CITRATE 250 MCG/5 ML AMP ONE
[2017-10-06 15:36] VITALS: BP 132/77; PULSE 90; RESP 18; TEMP 98.1; O2SAT 96
[2017-10-06] MEDS ORDERED: ACETAMINOPHEN/HYDROcodone 325 MG/5 MG TAB PO ONE (16:15)
[2017-10-06] MEDS ORDERED: NORC5TAB PO (16:20)
--- NOTE | 2017-10-06 16:20 | PD ---
HPI . Rib injury Chief Complaint: Injury Time Seen by Provider: 16:02 Travel History International Travel<30 days: No Contact w/Intl Traveler<30days: No Traveled to known affect area: No History of Present Illness HPI This patient presents with the chief complaint of an injury to his right anterior rib cage. He suffered micturition syncope yesterday while sitting on the toilet. He fell against the tub. He comes in complaining with continued right lower anterior rib pain since that time. Pain is exacerbated by movement , deep breathing and coughing. Pain was unrelieved by an unknown pain medication. Pain is currently rated 10/10. PFSH Past Medical History Hx Anticoagulant Therapy: Yes (PLAVIX) Anxiety: Yes Cancer: Yes (PROSTATE, rediation SKIN CANCERS) Cardiovascular Problems: No High Cholesterol: Yes Coronary Artery Disease: Yes Diminished Hearing: No Endocrine: No Genitourinary: Yes (HAD BLEEDING ---PROSTATE CANCER) Hepatitis: No Hiatal Hernia: No Hypertension: Yes Immune Disorder: No Medical other: Yes (PAST HX VERTIGO) Musculoskeletal: Yes (CHRONIC BACK PAIN ARTHRITIS) Neurologic: Yes (NEUROPATHY) Psychiatric: No Reproductive: No Respiratory: No Influenza Vaccination: Yes Past Surgical History Abdominal Surgery: No Cardiac Surgery: No Ear Surgery: No Endocrine Surgery: No Eye Surgery: Yes (BILATERAL CATARACT) Genitourinary Surgery: No Gynecologic Surgery: No Neurologic Surgery: Yes (CERVICAL SURGERY) Oral Surgery: No Pacemaker: No Thoracic Surgery: No Other Surgery: Yes Social History Alcohol Use: Yes (BEER DAILY) Tobacco Use: No (NEVER) Substance Use: No Allergies-Medications (Allergen,Severity, Reaction): Coded Allergies: diatrizoate meglumine (Unverified Allergy, Mild, NO SURE IF HAS ALLERGY, ) gadobenic acid (Unverified Allergy, Mild, NO SURE IF HAS ALLERGY, 10/06/17) gadodiamide (Unverified Allergy, Mild, NO SURE IF HAS ALLERGY, 10/06/17) gadoteridol (Unverified Allergy, Mild, NO SURE IF HAS ALLERGY, 10/06/17) iodixanol (Unverified Allergy, Mild, NO SURE IF HAS ALLERGY, 10/06/17) iohexol (Unverified Allergy, Mild, NO SURE IF HAS ALLERGY, 10/06/17) Reported Meds & Prescriptions Reported Meds & Active Scripts Active [place] (Hydrocodone-Acetaminophen) 5 Mg-325 Mg Tab 1 Tab PO Q4H PRN Reported Cialis (Tadalafil) 10 Mg Tab 10 Mg PO DAILY PRN Do not exceed 1 dose/day. Calcium (Calcium Carbonate-Cholecalciferol) 1,250-100 Mg-Unit Chew 1 Tab CHEW Calcium Carbonate 1,500 Mg Tab 1,500 Mg PO DAILY 1,500 mg calcium carbonate (600 mg elemental calcium) Meclizine (Meclizine HCl) 25 Mg Tab 25 Mg PO TID PRN Vitamin D-1000 (Cholecalciferol) 1,000 Unit Tab 5,000 Units PO DAILY Vitamin D (Cholecalciferol) 400 Unit/Ml Drops 5,000 Units PO DAILY Vitamin E 200 Unit Cap 400 Units PO DAILY Xanax (Alprazolam) 0.25 Mg Tab 0.25 Mg PO Q4H PRN Trazodone (Trazodone HCl) 50 Mg Tab 50 Mg PO HS PRN Losartan (Losartan Potassium) 100 Mg Tab 100 Mg PO DAILY Clonazepam 1 Mg Tab 1 Mg PO HS Zocor (Simvastatin) 40 Mg Tab 40 Mg PO HS Zovirax (Acyclovir) 400 Mg Tab 400 Mg PO DAILY Clopidogrel (Clopidogrel Bisulfate) 75 Mg Tab 75 Mg PO DAILY Verapamil ER (Verapamil HCl) 180 Mg Tab 180 Mg PO DAILY Tamsulosin (Tamsulosin HCl) 0.4 Mg Cap 0.4 Mg PO BID Firmagon Inj (Degarelix Inj) 80 Mg Inj 80 Mg SQ Q28D Review of Systems Except as stated in HPI: all other systems reviewed are Neg Cardiovascular: Positive: Chest Pain or Discomfort Respiratory: No: Shortness of Breath Physical Exam Narrative GENERAL: Awake and alert and in no acute distress. SKIN: Warm and dry. No bruises or abrasions of the chest wall. HEAD: Normocephalic/atraumatic. EYES: Pupils are equal. Extraocular movements are intact. NECK: Normal range of motion. CARDIOVASCULAR: Regular rate and rhythm. RESPIRATORY: Nonlabored respirations. Lungs are clear with good air movement throughout. He does have tenderness to the right lower anterior ribs. No crepitus or deformity. ABDOMEN: Soft and nontender. MUSCULOSKELETAL: Atraumatic. NEUROLOGICAL: Nonfocal. PSYCHIATRIC: Appropriate mood and affect. Data Data Last Documented VS Vital Signs Date Time Temp Pulse Resp B/P (MAP) Pulse Ox O2 Delivery O2 Flow Rate FiO2 10/06/17 16:43 92 20 134/78 (96) 95 Room Air 10/06/17 15:36 98.1 Orders Orders Ribs, Uni (W/Exp Cxr-Min 3vw) (10/06/17 16:02) Acetamin-Hydrocod 325-5 Mg ([place] 5-325 (10/06/17 16:15) MDM Medical Decision Making Medical Screen Exam Complete: Yes Emergency Medical Condition: Yes Differential Diagnosis Differential diagnosis of chest trauma includes but is not limited to superficial abrasions/contusions, rib fracture, pneumothorax, hemothorax, pulmonary contusion, cardiac contusion, ruptured thoracic aorta Narrative Course This patient presents with chief complaint of an injury to his right anterior chest. Rib series is pending. He'll be given [place] for pain. Last Impressions Ribs X-Ray 10/06/17 1602 Signed Impressions: Service Date/Time: Friday, October 06, 2017 17:16 - CONCLUSION: No definite displaced rib fractures. Santos Burdick MD He will be discharged to home with prescription for [place]. Diagnosis Primary Impression: Contusion of right chest wall Qualified Codes: S20.211A - Contusion of right front wall of thorax, initial encounter Med/Other Pt SpecificInfo: Prescription(s) given Scripts Hydrocodone-Acetaminophen ([place]) 5 Mg-325 Mg Tab 1 TAB PO Q4H Y for PAIN, #12 TAB 0 Refills Prov: Sandrita Cornelius MD 10/06/17 Disposition: 01 DISCHARGE HOME Condition: Stable Sandrita Cornelius MD Oct 06, 2017 16:20
[2017-10-06 16:43] VITALS: BP 134/78; PULSE 92; RESP 20; O2SAT 95
[2017-10-06] MEDS ORDERED: CALC600T4 PO (16:56)
[2017-10-06] MEDS ORDERED: VITA200C3 PO (16:56)
[2017-10-06] MEDS ORDERED: CHOL400D2 PO (16:56)
[2017-10-06] MEDS ORDERED: VITA1000 PO (16:56)
[2017-10-06] MEDS ORDERED: MECL-62 PO (16:56)
[2017-10-06] MEDS ORDERED: CALC500C2 CHEW (16:56)
[2017-10-06] MEDS ORDERED: CIAL10TA PO (16:56)
[2017-10-06 17:14] VITALS: RESP 18
--- NOTE | 2017-10-06 17:38 | RADRPT ---
EXAM DATE/TIME: 10/06/2017 17:16 [facility] COMPARISON: No previous studies available for comparison. INDICATIONS : Right rib pain. Patient fell last night hitting the toilet with the right side of his chest. MEDICAL HISTORY : Hypertension. Carcinoma, prostate with radiation. SURGICAL HISTORY : Fusion, cervical. ENCOUNTER: Initial ACUITY: 2 days PAIN SCORE: 7/10 LOCATION: Right lower chest FINDINGS: No definite displaced rib fractures or pneumothorax is identified. CONCLUSION: No definite displaced rib fractures. Santos Burdick MD on October 06, 2017 at 17:35 Board Certified Radiologist. This report was verified electronically.
[2017-10-06 18:05] VITALS: BP 120/72
== END 2017-10-06 18:50 | disposition home or self-care (01) ==
LOC: PHED 15:30
DX: S20.211A Contusion of right front wall of thorax, initial encounter (principal); I10 Essential (primary) hypertension; W18.12XA Fall from or off toilet with subsequent striking against object, initial encounter; Y93.E8 Activity, other personal hygiene; Y92.002 Bathroom of unspecified non-institutional (private) residence as the place of occurrence of the external cause
CPT/HCPCS: 71101; 99283